=== PATIENT | female | born 1945 | race Caucasian/White ===

== ENCOUNTER → 2018-04-05 08:14 | Outpatient (CLI) | payer OTHER, SELFPAY ==
[2018-04-05 09:17] LABS: Hemoglobin A1C% w Est Avg Glu 7.2 % (4.0-6.0)
[2018-04-05 09:23] LABS: Hematocrit 37.3 % (36-46); Hemoglobin 12.9 g/dL (12.0-16.0); Mean Corpuscular HGB Conc 34.6 % (30-36); Mean Corpuscular Hemoglobin 30.6 PG (26-34); Mean Corpuscular Volume 88.5 fL (80-100); Platelet Count 251 X10^3/uL (150-400); Red Blood Cell Count 4.22 X10^6/uL (4.0-5.2); Red Cell Distribution Width 12.5 % (11.6-14.8); White Blood Cell Count 6.4 X10^3/uL (4.5-11.0)
[2018-04-05 09:28] LABS: Alanine Aminotransferase 31 IU/L (9-52); Albumin 4.5 g/dL (3.5-5.0); Albumin Globulin Ratio 1.4 (1.0-2.8); Alkaline Phosphatase 50 U/L (38-126); Aspartate Aminotransferase 23 IU/L (14-36); Bilirubin Total 0.6 mg/dL (0.2-1.3); Blood Urea Nitrogen 20 mg/dL (7-17); Calcium 10.4 mg/dL (8.4-10.2); Carbon Dioxide 30 mmol/L (22-32); Chloride 101 mmol/L (98-107); Cholesterol 166 mg/dL (140-199); Estimated Glomerular Filt Rate > 60.0 mL/min (>60); Globulin 3.2 g/dL (1.7-4.1); Glucose 148 mg/dL (80-110); HDL Cholesterol 45 mg/dL (40-60); HEMOLYSIS < 15 (0-50); LDL Cholesterol Calculated 78 mg/dL (<100); Potassium 4.5 mmol/L (3.4-5.1); Sodium 143 mmol/L (137-145); Total Protein 7.7 g/dL (6.3-8.2); Triglycerides 213 mg/dL (35-150)
[2018-04-05 09:44] LABS: Free T4, Direct Thyroxine 1.48 ng/dL (0.78-2.19)
[2018-04-05 09:58] LABS: Thyroid Stimulating Hormone 1.86 uIU/mL (0.47-4.68)
== END ==
PROVIDERS: Family Medicine; Visit Provider Family Medicine
DX: E03.9 Hypothyroidism, unspecified (principal); I10 Essential (primary) hypertension; E78.2 Mixed hyperlipidemia; E11.9 Type 2 diabetes mellitus without complications
CPT/HCPCS: 36415; 80053; 80061; 83036; 84439; 84443; 85027

== ENCOUNTER → 2018-07-21 09:34 | Outpatient (CLI) | payer OTHER, SELFPAY ==
[2018-07-21 10:32] LABS: Hemoglobin A1C% w Est Avg Glu 7.8 % (4.0-6.0)
== END ==
PROVIDERS: Visit Provider Family Medicine
DX: E11.9 Type 2 diabetes mellitus without complications (principal)
CPT/HCPCS: 36415; 83036

== ENCOUNTER → 2018-11-19 10:54 | Outpatient (CLI) | payer OTHER, SELFPAY ==
[2018-11-19 12:05] LABS: Hemoglobin A1C% w Est Avg Glu 7.5 % (4.0-6.0)
== END ==
PROVIDERS: Visit Provider Family Medicine
DX: E11.65 Type 2 diabetes mellitus with hyperglycemia (principal)
CPT/HCPCS: 36415; 83036

== ENCOUNTER → 2019-03-24 09:53 | Outpatient (CLI) | payer OTHER, SELFPAY ==
--- NOTE | 2019-03-24 10:45 | DI.RAD.S_ITS ---
PROCEDURE: XR KNEE RT 3V INDICATIONS: knee pain TECHNIQUE: 3 views of the knee were acquired. COMPARISON: [facility], , XR KNEE 2V RIGHT, 09/02/2002, 12:17. FINDINGS: Bones: No fractures or dislocations. No suspicious bony lesions. There is tricompartmental knee joint degeneration, most pronounced at the patellofemoral joint. Soft tissues: Small joint effusion. No suspicious soft tissue calcifications. IMPRESSION: Tricompartmental degenerative joint disease and small knee joint effusion. Dictated by: Cami Higuera M.D. on 03/24/2019 at 12:20 Approved by: Cami Higuera M.D. on 03/24/2019 at 12:21
[2019-03-24 11:54] LABS: Hemoglobin A1C% w Est Avg Glu 7.6 % (4.0-6.0)
== END ==
PROVIDERS: PCP Family Medicine; Visit Provider Family Medicine
DX: E11.319 Type 2 diabetes mellitus with unspecified diabetic retinopathy without macular edema (principal); E11.9 Type 2 diabetes mellitus without complications; E78.2 Mixed hyperlipidemia; M25.50 Pain in unspecified joint
CPT/HCPCS: 36415; 73562; 83036

== ENCOUNTER → 2019-04-20 11:27 | Outpatient (CLI) | payer OTHER, SELFPAY ==
--- NOTE | 2019-04-20 11:28 | DI.MG.S_ITS ---
BILATERAL DIGITAL SCREENING MAMMOGRAM 3D/2D WITH CAD: 04/20/2019 CLINICAL: Routine screening. Comparison is made to exams dated: 07/03/2011 mammogram, 09/05/2009 mammogram, and 11/26/2016 mammogram - [facility]. There are scattered fibroglandular elements in both breasts. Current study was also evaluated with a Computer Aided Detection (CAD) system. There are benign calcifications in both breasts. No significant masses, calcifications, or other findings are seen in either breast. There has been no significant interval change. IMPRESSION: There is no mammographic evidence of malignancy. A 1 year screening mammogram is recommended. This exam was interpreted at Station ID: [id number]. NOTE: For mammograms, a report in lay terms will be sent to the patient. Approximately 15% of breast malignancies will not be visualized mammographically. In the management of a palpable breast mass, a negative mammogram must not discourage biopsy of a clinically suspicious lesion. Electronically Signed By: Jin platt/ajith:04/20/2019 12:15:34 letter sent: Normal Exam ACR BI-RADS Category 2: Benign Finding(s) 3342F
== END ==
PROVIDERS: PCP Family Medicine; Visit Provider Family Medicine
DX: Z12.31 Encounter for screening mammogram for malignant neoplasm of breast (principal)
CPT/HCPCS: 77063; 77067

== ENCOUNTER → 2019-06-12 14:06 | Outpatient (CLI) | payer OTHER, SELFPAY | PROVIDERS: PCP Family Medicine; Visit Provider Nurse Practitioner Family | DX: L29.9 Pruritus, unspecified (principal) | CPT/HCPCS: 87210 ==

== ENCOUNTER → 2019-08-04 13:46 | Outpatient (CLI) | payer OTHER, SELFPAY ==
[2019-08-04 14:52] LABS: Add Manual Diff / Slide Review NO; Basophils Absolute Auto 0 /uL (0-100); Basophils Percent Auto 0.4 % (0-2); Eosinophils Absolute Auto 200 /uL (0-450); Eosinophils Percent Auto 2.4 % (2-4); Hematocrit 36.5 % (36-46); Hemoglobin 12.4 g/dL (12.0-16.0); Lymphocytes Absolute Auto 2000 /uL (1100-4500); Mean Corpuscular Hemoglobin 30.5 PG (26-34); Mean Corpuscular Volume 89.7 fL (80-100); Monocytes Absolute Auto 800 /uL (0-900); Neutrophils Absolute Auto 4700 /uL (1500-7000); Neutrophils Percent Auto 61.2 % (50-75); Platelet Count 245 X10^3/uL (150-400); Red Blood Cell Count 4.07 X10^6/uL (4.0-5.2); Red Cell Distribution Width 12.7 % (11.6-14.8); White Blood Cell Count 7.7 X10^3/uL (4.5-11.0)
[2019-08-04 15:12] LABS: Alanine Aminotransferase 30 IU/L (9-52); Albumin 4.4 g/dL (3.5-5.0); Albumin Globulin Ratio 1.7 (1.0-2.8); Alkaline Phosphatase 52 U/L (38-126); Aspartate Aminotransferase 27 IU/L (14-36); Bilirubin Total 0.4 mg/dL (0.2-1.3); Blood Urea Nitrogen 18 mg/dL (7-17); Calcium 9.8 mg/dL (8.4-10.2); Carbon Dioxide 25 mmol/L (22-32); Chloride 102 mmol/L (98-107); Estimated Glomerular Filt Rate > 60.0 mL/min (>60); Globulin 2.6 g/dL (1.7-4.1); Glucose 179 mg/dL (80-110); HEMOLYSIS < 15 (0-50); Potassium 4.6 mmol/L (3.4-5.1); Sodium 139 mmol/L (137-145)
[2019-08-04 15:14] LABS: Hemoglobin A1C% w Est Avg Glu 8.4 % (4.0-6.0)
[2019-08-04 15:42] LABS: TSH w/ Reflex to FT4 1.24 uIU/mL (0.47-4.68)
== END ==
PROVIDERS: PCP Family Medicine; Visit Provider Family Medicine
DX: E11.65 Type 2 diabetes mellitus with hyperglycemia (principal); E03.9 Hypothyroidism, unspecified
CPT/HCPCS: 36415; 80053; 83036; 84443; 85025

== ENCOUNTER → 2019-11-11 15:18 | Outpatient (CLI) | payer MEDICARE, SELFPAY ==
[2019-11-11 17:02] LABS: Hemoglobin A1C% w Est Avg Glu 8.7 % (4.0-6.0)
== END ==
PROVIDERS: PCP Family Medicine; Visit Provider Family Medicine
DX: E11.65 Type 2 diabetes mellitus with hyperglycemia (principal)
CPT/HCPCS: 36415; 83036

== ENCOUNTER → 2019-11-25 10:55 | Outpatient (CLI) | payer MEDICARE, SELFPAY ==
--- NOTE | 2019-11-25 14:35 | DIET.PN ---
Diabetes Intake: Initial Assessment ASSESS:?? Mrs. Shea is a 74 yof referred for long standing hx (20 yrs) of type 2 diabetes. She is partially retired, but works at home 2 days per week. She is frustrated with difficulty in managing her BG and weight. She has done weight watchers for several years, but admits to over snacking in the evening. States, if she has snacks/sweets in the house she will eat them. She has not been very active lately, but does enjoy walking the local trails. She reports some tingling and poor circulation in her lower extremities as well as wrestles leg syndrome. ? She has had a recent increase in diabetes medication (glipizide). She was prescribed 10 mg several months ago, but was only taking 2.5 mg mistakenly. LABS: Per pt report:? A1c: 8.7 ? MEDS:?? metformin 850 mg BID; glipizide XR BID ? Weight: 197lb Height: 70 in BMI: 28.26 (overweight) ? Exercise:? occasional walking NUTRITION DX 1. Altered Nutrition related labs related to impaired glucose metabolism, lack of previous exposure to accurate nutrition information as evidenced by pt report, dx of diabetes, previous diet high in refined carbohydrates.? Intervention: 1. Completed intake assessment. Discussed barriers to care. 2. Discussed pathophysiology of diabetes. Reviewed A1c and its correlation to blood glucose numbers. Discussed recommended BG ranges. 3. Discussed importance of self-monitoring, how often, and when to check. Provided demonstration on use of glucometer. 4. Reviewed hyper/hypoglycemia and treatment. 5. Reviewed safe disposal of equipment (strip/lancets/insulin needles). 6. Created SMART goals for pt self-care and success. 7. Discussed program curriculum outline and class needs based on individual goals. SMART Goals: 1. Pt would like to lose 20 lbs in the next 6 months through better dietary habits (portion control, carb counting, mindful snacking) and increasing daily physical activity. Monitor/Evaluate: Anticipate excellent compliance. Pt will attend full DSME program. Basic Nutrition class scheduled for Dec 01.
== END ==
PROVIDERS: PCP Family Medicine; Referring Provider Family Medicine; Visit Provider Family Medicine
DX: E11.9 Type 2 diabetes mellitus without complications (principal); Z79.84 Long term (current) use of oral hypoglycemic drugs; E66.3 Overweight; Z71.3 Dietary counseling and surveillance; Z68.28 Body mass index [BMI] 28.0-28.9, adult
CPT/HCPCS: G0108

== ENCOUNTER → 2019-12-01 14:24 | Outpatient (CLI) | payer MEDICARE, SELFPAY ==
--- NOTE | 2019-12-01 16:18 | DIET.PN ---
Diabetes: Healthy Eating 2 Intervention: Fats effects on glucose, weight, heart disease, cholesterol Sat Vs Unsat Protein- animal and plant based options Low, med, high fat meats Sugar substitutes Sodium Health claims Grocery shopping guidelines Eating away from home Alcohol Sick day guidelines
== END ==
PROVIDERS: PCP Family Medicine; Referring Provider Family Medicine; Visit Provider Family Medicine
DX: E11.9 Type 2 diabetes mellitus without complications (principal); Z71.3 Dietary counseling and surveillance
CPT/HCPCS: G0109

== ENCOUNTER → 2019-12-14 15:03 | Outpatient (CLI) | payer MEDICARE, SELFPAY ==
[2019-12-14 20:01] LABS: Creatinine Urine Random 181.4 mg/dL
[2019-12-14 20:06] LABS: Microalbumi Creatinin Ratio Ur 20.3 ug/mg CR (<30); Microalbumin Urine Random 3.7 mg/dL (0-1.6)
== END ==
PROVIDERS: PCP Family Medicine; Visit Provider Family Medicine
DX: E11.65 Type 2 diabetes mellitus with hyperglycemia (principal)
CPT/HCPCS: 82043; 82570

== ENCOUNTER → 2019-12-26 10:28 | Outpatient (CLI) | payer MEDICARE, SELFPAY ==
[2019-12-26 10:58] LABS: Appearance Urine UA CLOUDY; Bilirubin Urine UA NEGATIVE (NEGATIVE); Color Urine UA YELLOW; Glucose Urine UA TRACE g/dL (Negative); Ketones Urine UA TRACE (NEGATIVE); Leukocyte Esterase Urine UA 2+ (NEGATIVE); Nitrite Urine UA POSITIVE (Negative); Occult Blood Urine UA 2+ (Negative); Protein Urine UA 1+ (Negative); Urobilinogen Urine UA 0.2 E.U./dL (0.2)
[2019-12-26 11:05] LABS: Bacteria Urine Many (>30); Culture Indicated Urine Specimen Cultured; RBC Urine 5-10/HPF (0-5/HPF); Squamous Epithelial Cell Urine None Seen (0-5/HPF); WBC Urine >100/HPF (0-5/HPF)
== END ==
PROVIDERS: PCP Family Medicine; Referring Provider Family Medicine; Visit Provider Family Medicine
DX: R30.0 Dysuria (principal)
CPT/HCPCS: 81001; 87077; 87086; 87186

== ENCOUNTER → 2020-01-05 16:38 | Outpatient (CLI) | payer MEDICARE, SELFPAY ==
[2020-01-05 17:00] LABS: Appearance Urine UA CLOUDY; Bilirubin Urine UA NEGATIVE (NEGATIVE); Color Urine UA YELLOW; Glucose Urine UA 1+ g/dL (Negative); Ketones Urine UA 1+ (NEGATIVE); Leukocyte Esterase Urine UA 2+ (NEGATIVE); Nitrite Urine UA POSITIVE (Negative); Occult Blood Urine UA 2+ (Negative); Protein Urine UA 1+ (Negative); Specific Gravity Urine UA 1.025 (1.000-1.035); Urobilinogen Urine UA 0.2 E.U./dL (0.2)
[2020-01-05 17:08] LABS: Bacteria Urine Moderate (10-30); Culture Indicated Urine Specimen Cultured; Mucus Urine 2+ (Negative); RBC Urine 1-5/HPF (0-5/HPF); Squamous Epithelial Cell Urine 0-1 /HPF (0-5/HPF); WBC Urine >100/HPF (0-5/HPF)
== END ==
PROVIDERS: PCP Family Medicine; Referring Provider Family Medicine; Visit Provider Family Medicine
DX: R30.0 Dysuria (principal)
CPT/HCPCS: 81001; 87077; 87086; 87186

== ENCOUNTER → 2020-02-22 14:25 | Outpatient (CLI) | payer MEDICARE, SELFPAY ==
[2020-02-22 16:25] LABS: Bilirubin Urine UA NEGATIVE (NEGATIVE); Color Urine UA YELLOW; Glucose Urine UA TRACE g/dL (Negative); Ketones Urine UA NEGATIVE (NEGATIVE); Leukocyte Esterase Urine UA 2+ (NEGATIVE); Nitrite Urine UA POSITIVE (Negative); Occult Blood Urine UA 1+ (Negative); Protein Urine UA NEGATIVE (Negative); Specific Gravity Urine UA 1.025 (1.000-1.035); Urobilinogen Urine UA 0.2 E.U./dL (0.2)
[2020-02-22 16:38] LABS: Appearance Urine UA Slightly Cloudy; RBC Urine 1-5/HPF (0-5/HPF); WBC Urine >100/HPF (0-5/HPF)
[2020-02-22 16:39] LABS: Bacteria Urine Many (>30)
[2020-02-22 16:41] LABS: Culture Indicated Urine Specimen Cultured
== END ==
PROVIDERS: PCP Family Medicine; Referring Provider Family Medicine; Visit Provider Family Medicine
DX: R30.0 Dysuria (principal)
CPT/HCPCS: 81001; 87077; 87086; 87186

== ENCOUNTER → 2020-03-02 11:48 | Outpatient (CLI) | payer MEDICARE, SELFPAY ==
[2020-03-02 12:11] LABS: Bacteria Urine None Seen; RBC Urine None Seen (0-5/HPF)
[2020-03-02 13:18] LABS: Appearance Urine UA CLEAR; Bilirubin Urine UA NEGATIVE (NEGATIVE); Color Urine UA YELLOW; Glucose Urine UA TRACE g/dL (Negative); Ketones Urine UA NEGATIVE (NEGATIVE); Leukocyte Esterase Urine UA NEGATIVE (NEGATIVE); Nitrite Urine UA NEGATIVE (Negative); Occult Blood Urine UA NEGATIVE (Negative); Protein Urine UA NEGATIVE (Negative); Urobilinogen Urine UA 0.2 E.U./dL (0.2)
[2020-03-02 13:38] LABS: Culture Indicated Urine Cult Not Indicated; Mucus Urine 1+ (Negative); Squamous Epithelial Cell Urine 1-5 /HPF (0-5/HPF); WBC Urine 1-5/HPF (0-5/HPF)
== END ==
PROVIDERS: PCP Family Medicine; Referring Provider Family Medicine; Visit Provider Family Medicine
DX: N39.0 Urinary tract infection, site not specified (principal)
CPT/HCPCS: 81001

== ENCOUNTER → 2020-03-21 09:55 | Outpatient (CLI) | payer MEDICARE, SELFPAY ==
[2020-03-21 11:10] LABS: BUN Creatinine Ratio 17.1 (6-22); Blood Urea Nitrogen 13 mg/dL (7-17); Calcium 9.8 mg/dL (8.4-10.2); Carbon Dioxide 25 mmol/L (22-32); Chloride 107 mmol/L (98-107); Cholesterol 172 mg/dL (140-199); Estimated Glomerular Filt Rate > 60.0 mL/min (>60); Glucose 185 mg/dL (80-110); HDL Cholesterol 40 mg/dL (40-60); HEMOLYSIS < 15 (0-50); LDL Cholesterol Calculated 95 mg/dL (<100); Potassium 4.8 mmol/L (3.4-5.1); Sodium 139 mmol/L (137-145); Triglycerides 184 mg/dL (35-150)
[2020-03-21 11:17] LABS: Hemoglobin A1C% w Est Avg Glu 8.7 % (4.0-6.0)
== END ==
PROVIDERS: PCP Family Medicine; Referring Provider Family Medicine; Visit Provider Family Medicine
DX: E11.9 Type 2 diabetes mellitus without complications (principal); E78.2 Mixed hyperlipidemia; I10 Essential (primary) hypertension
CPT/HCPCS: 36415; 80048; 80061; 83036

== ENCOUNTER → 2020-07-26 10:13 | Outpatient (CLI) | payer MEDICARE, SELFPAY ==
[2020-07-26 11:28] LABS: Appearance Urine UA CLOUDY; Bilirubin Urine UA NEGATIVE (NEGATIVE); Color Urine UA YELLOW; Glucose Urine UA NEGATIVE (Negative); Ketones Urine UA NEGATIVE (NEGATIVE); Leukocyte Esterase Urine UA 2+ (NEGATIVE); Nitrite Urine UA POSITIVE (Negative); Occult Blood Urine UA TRACE-LYSED (Negative); Protein Urine UA TRACE (Negative); Specific Gravity Urine UA 1.025 (1.000-1.035); Urobilinogen Urine UA 0.2 E.U./dL (0.2)
[2020-07-26 11:37] LABS: Bacteria Urine Many (>30); Culture Indicated Urine Specimen Cultured; RBC Urine 1-5/HPF (0-5/HPF); Squamous Epithelial Cell Urine 1-5 /HPF (0-5/HPF); WBC Urine >100/HPF (0-5/HPF)
[2020-07-26 11:38] LABS: Add Manual Diff / Slide Review NO; Basophils Absolute Auto 0 /uL (0-100); Basophils Percent Auto 0.3 % (0-2); Eosinophils Absolute Auto 100 /uL (0-450); Eosinophils Percent Auto 1.7 % (2-4); Hematocrit 38.2 % (36-46); Lymphocytes Absolute Auto 2100 /uL (1100-4500); Lymphocytes Percent Auto 24.1 % (25-40); Mean Corpuscular HGB Conc 33.9 % (30-36); Mean Corpuscular Hemoglobin 30.2 PG (26-34); Mean Corpuscular Volume 89.1 fL (80-100); Monocytes Absolute Auto 900 /uL (0-900); Neutrophils Absolute Auto 5400 /uL (1500-7000); Neutrophils Percent Auto 63.9 % (50-75); Platelet Count 282 X10^3/uL (150-400); Red Blood Cell Count 4.29 X10^6/uL (4.0-5.2); Red Cell Distribution Width 12.7 % (11.6-14.8); White Blood Cell Count 8.5 X10^3/uL (4.5-11.0)
[2020-07-26 11:50] LABS: Alanine Aminotransferase 44 IU/L (<35); Albumin 4.5 g/dL (3.5-5.0); Albumin Globulin Ratio 1.5 (1.0-2.8); Alkaline Phosphatase 56 U/L (38-126); Aspartate Aminotransferase 38 IU/L (14-36); BUN Creatinine Ratio 25.9 (6-22); Bilirubin Total 0.6 mg/dL (0.2-1.3); Blood Urea Nitrogen 22 mg/dL (7-17); Carbon Dioxide 29 mmol/L (22-32); Chloride 103 mmol/L (98-107); Cholesterol 162 mg/dL (140-199); Estimated Glomerular Filt Rate > 60.0 mL/min (>60); Globulin 3.1 g/dL (1.7-4.1); Glucose 173 mg/dL (80-110); HDL Cholesterol 39 mg/dL (40-60); HEMOLYSIS < 15 (0-50); LDL Cholesterol Calculated 86 mg/dL (<100); Potassium 4.9 mmol/L (3.4-5.1); Sodium 139 mmol/L (137-145); Total Protein 7.6 g/dL (6.3-8.2); Triglycerides 184 mg/dL (35-150)
[2020-07-26 11:52] LABS: Hemoglobin A1C% w Est Avg Glu 8.2 % (4.0-6.0)
[2020-07-26 12:32] LABS: TSH w/ Reflex to FT4 1.51 uIU/mL (0.47-4.68)
== END ==
PROVIDERS: PCP Family Medicine; Referring Provider Family Medicine; Visit Provider Family Medicine
DX: E03.9 Hypothyroidism, unspecified (principal); E11.65 Type 2 diabetes mellitus with hyperglycemia; E78.2 Mixed hyperlipidemia; I10 Essential (primary) hypertension; R30.0 Dysuria
CPT/HCPCS: 36415; 80053; 80061; 81003; 81015; 83036; 84443; 85025; 87077; 87086; 87186

== ENCOUNTER → 2020-12-14 09:56 | Outpatient (CLI) | payer MEDICARE, SELFPAY ==
[2020-12-14 11:26] LABS: Hemoglobin A1C% w Est Avg Glu 8.9 % (4.0-6.0)
[2020-12-14 11:59] LABS: Alanine Aminotransferase 40 IU/L (<35); Albumin 4.6 g/dL (3.5-5.0); Albumin Globulin Ratio 1.8 (1.0-2.8); Alkaline Phosphatase 58 U/L (38-126); Aspartate Aminotransferase 30 IU/L (14-36); BUN Creatinine Ratio 22.2 (6-22); Bilirubin Total 0.4 mg/dL (0.2-1.3); Blood Urea Nitrogen 18 mg/dL (7-17); Calcium 9.9 mg/dL (8.4-10.2); Carbon Dioxide 27 mmol/L (22-32); Chloride 102 mmol/L (98-107); Estimated Glomerular Filt Rate > 60.0 mL/min (>60); Globulin 2.5 g/dL (1.7-4.1); Glucose 159 mg/dL (80-110); HEMOLYSIS < 15 (0-50); Potassium 4.6 mmol/L (3.4-5.1); Sodium 138 mmol/L (137-145); Total Protein 7.1 g/dL (6.3-8.2)
== END ==
PROVIDERS: PCP Family Medicine; Referring Provider Family Medicine; Visit Provider Family Medicine
DX: E11.65 Type 2 diabetes mellitus with hyperglycemia (principal)
CPT/HCPCS: 36415; 80053; 83036

== ENCOUNTER → 2020-12-19 12:08 | Outpatient (CLI) | payer MEDICARE, SELFPAY ==
--- NOTE | 2020-12-19 | DI.MG.S_ITS ---
BILATERAL DIGITAL SCREENING MAMMOGRAM 3D/2D WITH CAD: 12/19/2020 CLINICAL: Routine screening. Comparison is made to exams dated: 04/20/2019 mammogram, 11/26/2016 mammogram, and 07/03/2011 mammogram - [facility]. There are scattered fibroglandular elements in both breasts. Current study was also evaluated with a Computer Aided Detection (CAD) system. There are benign calcifications in both breasts. No significant masses, calcifications, or other findings are seen in either breast. There has been no significant interval change. IMPRESSION: BENIGN There is no mammographic evidence of malignancy. A 1 year screening mammogram is recommended. This exam was interpreted at Station ID: [id number]. NOTE: For mammograms, a report in lay terms will be sent to the patient. Approximately 15% of breast malignancies will not be visualized mammographically. In the management of a palpable breast mass, a negative mammogram must not discourage biopsy of a clinically suspicious lesion. Electronically Signed By: Red guy/ajith:12/19/2020 14:04:51 letter sent: Normal Exam ACR BI-RADS Category 2: Benign Finding(s) 3342F
== END ==
PROVIDERS: PCP Family Medicine; Referring Provider Family Medicine; Visit Provider Family Medicine
DX: Z12.31 Encounter for screening mammogram for malignant neoplasm of breast (principal)
CPT/HCPCS: 77063; 77067

== ENCOUNTER → 2021-03-15 12:17 | Outpatient (CLI) | payer MEDICARE, SELFPAY ==
[2021-03-15 13:48] LABS: Hemoglobin A1C% w Est Avg Glu 8.3 % (4.0-6.0)
== END ==
PROVIDERS: PCP Family Medicine; Referring Provider Family Medicine; Visit Provider Family Medicine
DX: E11.65 Type 2 diabetes mellitus with hyperglycemia (principal)
CPT/HCPCS: 36415; 83036

== ENCOUNTER → 2021-06-16 12:29 | Outpatient (CLI) | payer MEDICARE, SELFPAY ==
[2021-06-16 14:16] LABS: Hemoglobin A1C% w Est Avg Glu 7.2 % (4.0-6.0)
[2021-06-16 14:25] LABS: Alanine Aminotransferase 33 IU/L (<35); Albumin 4.8 g/dL (3.5-5.0); Albumin Globulin Ratio 1.7 (1.0-2.8); Alkaline Phosphatase 51 U/L (38-126); Aspartate Aminotransferase 30 IU/L (14-36); BUN Creatinine Ratio 27.1 (6-22); Bilirubin Total 0.5 mg/dL (0.2-1.3); Blood Urea Nitrogen 23 mg/dL (7-17); Calcium 9.7 mg/dL (8.4-10.2); Carbon Dioxide 27 mmol/L (22-32); Chloride 102 mmol/L (98-107); Estimated Glomerular Filt Rate > 60.0 mL/min (>60); Globulin 2.9 g/dL (1.7-4.1); Glucose 150 mg/dL (80-110); HEMOLYSIS < 15 (0-50); Potassium 4.3 mmol/L (3.4-5.1); Sodium 137 mmol/L (137-145); Total Protein 7.7 g/dL (6.3-8.2)
== END ==
PROVIDERS: PCP Family Medicine; Referring Provider Family Medicine; Visit Provider Family Medicine
DX: E11.65 Type 2 diabetes mellitus with hyperglycemia (principal)
CPT/HCPCS: 36415; 80053; 83036

== ENCOUNTER → 2021-12-23 10:42 | Outpatient (CLI) | payer MEDICARE, SELFPAY ==
[2021-12-23 12:36] LABS: Hemoglobin A1C% w Est Avg Glu 7.7 % (4.0-6.0)
[2021-12-23 12:50] LABS: Alanine Aminotransferase 29 IU/L (<35); Albumin 4.7 g/dL (3.5-5.0); Albumin Globulin Ratio 1.6 (1.0-2.8); Alkaline Phosphatase 57 U/L (38-126); Aspartate Aminotransferase 26 IU/L (14-36); BUN Creatinine Ratio 22.6 (6-22); Bilirubin Total 0.6 mg/dL (0.2-1.3); Blood Urea Nitrogen 19 mg/dL (7-17); Calcium 9.9 mg/dL (8.4-10.2); Carbon Dioxide 28 mmol/L (22-32); Chloride 102 mmol/L (98-107); Estimated Glomerular Filt Rate > 60.0 mL/min (>60); Glucose 141 mg/dL (80-110); HEMOLYSIS < 15 (0-50); Potassium 5.1 mmol/L (3.4-5.1); Sodium 139 mmol/L (137-145); Total Protein 7.7 g/dL (6.3-8.2)
[2021-12-23 13:22] LABS: TSH w/ Reflex to FT4 1.11 uIU/mL (0.47-4.68)
[2021-12-23 13:42] LABS: Vitamin B12 443 pg/mL (239-931)
== END ==
PROVIDERS: PCP Family Medicine; Referring Provider Family Medicine; Visit Provider Family Medicine
DX: E11.9 Type 2 diabetes mellitus without complications (principal); E03.9 Hypothyroidism, unspecified
CPT/HCPCS: 36415; 80053; 82607; 83036; 84443

== ENCOUNTER → 2021-12-25 09:55 | Outpatient (CLI) | payer MEDICARE, SELFPAY ==
[2021-12-25 19:35] LABS: Microalbumin Urine Random 1.4 mg/dL (0-1.6)
[2021-12-25 19:44] LABS: Creatinine Urine Random 73.4 mg/dL
== END ==
PROVIDERS: PCP Family Medicine; Referring Provider Family Medicine; Visit Provider Family Medicine
DX: E11.9 Type 2 diabetes mellitus without complications (principal)
CPT/HCPCS: 82043; 82570

== ENCOUNTER → 2022-03-20 14:24 | Outpatient (CLI) | payer MEDICARE, SELFPAY ==
--- NOTE | 2022-03-20 14:25 | DI.MG.S_ITS ---
BILATERAL DIGITAL SCREENING MAMMOGRAM 3D/2D WITH CAD: 03/20/2022 CLINICAL: Routine screening. Comparison is made to exams dated: 12/19/2020 mammogram, 04/20/2019 mammogram, and 11/26/2016 mammogram - [facility]. There are scattered fibroglandular elements in both breasts. Current study was also evaluated with a Computer Aided Detection (CAD) system. There are benign calcifications in both breasts. No significant masses, calcifications, or other findings are seen in either breast. There has been no significant interval change. IMPRESSION: BENIGN There is no mammographic evidence of malignancy. A 1 year screening mammogram is recommended. This exam was interpreted at Station ID: [id number]. NOTE: For mammograms, a report in lay terms will be sent to the patient. Approximately 15% of breast malignancies will not be visualized mammographically. In the management of a palpable breast mass, a negative mammogram must not discourage biopsy of a clinically suspicious lesion. Electronically Signed By: Terry gonzalez/ajith:03/20/2022 15:03:03 letter sent: Normal Exam ACR BI-RADS Category 2: Benign Finding(s) 3342F
== END ==
PROVIDERS: PCP Family Medicine; Referring Provider Family Medicine; Visit Provider Family Medicine
DX: Z12.31 Encounter for screening mammogram for malignant neoplasm of breast (principal)
CPT/HCPCS: 77063; 77067

== ENCOUNTER → 2022-06-06 12:09 | Outpatient (CLI) | payer MEDICARE, SELFPAY ==
[2022-06-06 14:06] LABS: Hemoglobin A1C% w Est Avg Glu 7.4 % (4.0-6.0)
== END ==
PROVIDERS: PCP Family Medicine; Referring Provider Family Medicine; Visit Provider Family Medicine
DX: E11.9 Type 2 diabetes mellitus without complications (principal)
CPT/HCPCS: 36415; 83036

== ENCOUNTER → 2022-12-12 13:27 | Outpatient (CLI) | payer MEDICARE, SELFPAY ==
[2022-12-12 14:23] LABS: Alanine Aminotransferase 30 IU/L (<35); Albumin 4.3 g/dL (3.5-5.0); Albumin Globulin Ratio 1.5 (1.0-2.8); Alkaline Phosphatase 61 U/L (38-126); Aspartate Aminotransferase 27 IU/L (14-36); BUN Creatinine Ratio 23.8 (6-22); Bilirubin Total 0.4 mg/dL (0.2-1.3); Blood Urea Nitrogen 19 mg/dL (7-17); Calcium 9.3 mg/dL (8.4-10.2); Chloride 101 mmol/L (98-107); Estimated Glomerular Filt Rate > 60 mL/min (>60); Globulin 2.8 g/dL (1.7-4.1); Glucose 218 mg/dL (80-110); HEMOLYSIS < 15 (0-50); Potassium 4.6 mmol/L (3.4-5.1); Sodium 138 mmol/L (137-145); Total Protein 7.1 g/dL (6.3-8.2)
[2022-12-12 14:24] LABS: Carbon Dioxide 26 mmol/L (22-32); Hemoglobin A1C% w Est Avg Glu 8.1 % (4.0-6.0)
[2022-12-12 15:27] LABS: TSH w/ Reflex to FT4 0.36 uIU/mL (0.47-4.68)
[2022-12-12 17:19] LABS: Creatinine Urine Random 52.6 mg/dL
[2022-12-12 17:25] LABS: Microalbumin Urine Random < 0.6 mg/dL (0-1.6)
[2022-12-13 04:41] LABS: Free T4, Direct Thyroxine 2.03 ng/dL (0.78-2.19)
== END ==
PROVIDERS: PCP Family Medicine; Referring Provider Family Medicine; Visit Provider Family Medicine
DX: E11.319 Type 2 diabetes mellitus with unspecified diabetic retinopathy without macular edema (principal); E03.9 Hypothyroidism, unspecified
CPT/HCPCS: 36415; 80053; 82043; 82570; 83036; 84439; 84443

== ENCOUNTER → 2023-02-26 13:36 | Outpatient (CLI) | payer MEDICARE, SELFPAY ==
[2023-02-27 06:01] LABS: Labcorp Hemoglobin (Hb) A1c 8.3 % (4.8-5.6)
== END ==
PROVIDERS: PCP Family Medicine; Referring Provider Family Medicine; Visit Provider Family Medicine
DX: E11.9 Type 2 diabetes mellitus without complications (principal)
CPT/HCPCS: 83036

== ENCOUNTER → 2023-03-25 11:00 | Outpatient (CLI) | payer MEDICARE, SELFPAY ==
--- NOTE | 2023-03-25 11:01 | DI.MG.S_ITS ---
BILATERAL DIGITAL SCREENING MAMMOGRAM 3D/2D WITH CAD: 03/25/2023 CLINICAL: Routine screening. Comparison is made to exams dated: 03/20/2022 mammogram, 12/19/2020 mammogram, and 04/20/2019 mammogram - [facility]. Both breasts are heterogeneously dense, which may obscure small masses (category c / 51-75% glandular tissue). Current study was also evaluated with a Computer Aided Detection (CAD) system. There are benign calcifications in both breasts. No significant masses, calcifications, or other findings are seen in either breast. There has been no significant interval change. IMPRESSION: BENIGN There is no mammographic evidence of malignancy. A 1 year screening mammogram is recommended. Based on the Tyrer Cuzick model (a risk assessment model) the patient's lifetime risk is 4.0% and her 10 year risk is 0.0%. According to the ACR, ACS, and NCCN guidelines, an annual breast MRI exam along with mammogram is recommended if the patient's lifetime risk is 20% or greater. This exam was interpreted at Station ID: [id number]. NOTE: For mammograms, a report in lay terms will be sent to the patient. Approximately 15% of breast malignancies will not be visualized mammographically. In the management of a palpable breast mass, a negative mammogram must not discourage biopsy of a clinically suspicious lesion. Electronically Signed By: Edson madrigal/ajith:03/25/2023 12:49:25 letter sent: Normal Exam ACR BI-RADS Category 2: Benign Finding(s) 3342F
== END ==
PROVIDERS: Family Provider Family Medicine; PCP Family Medicine; Referring Provider Family Medicine; Visit Provider Family Medicine
DX: Z12.31 Encounter for screening mammogram for malignant neoplasm of breast (principal)
CPT/HCPCS: 77063; 77067

== ENCOUNTER → 2023-03-29 10:07 | Outpatient (CLI) | payer MEDICARE, SELFPAY ==
--- NOTE | 2023-04-04 15:23 | DIAB.INIT ---
Initial Diabetes Education Assessment Name: Jane Shea Date: 03/29/23 Time: [id number] Dx: Type II Diabetes Provider: Zeke Tellez presents for initial Dm visit. Interested in CGM. Understands that personal CGM would be out of pocket expense. Endorses FH of DM with father and paternal grandmother. 20+ years PMH of DM Wants ideas for healthy low carb snacks. Physical Activity: walks occasionally 2x per week for 2-2.5 mi Self-Monitoring Blood Glucose: Checks FBG: recently 120-135mg/dl, however can be as high as 170 mg/dl. Feels low at 80 mg/dl. Diabetes Medications: Glipizide 10mg ER Metformin 850 mg BID Jardiance 25mg Pertinent Labs: hgA1c: 8.3% 02/2023 ; 8.1% 12/2022 Past Medical History: (Last Updated 03/13/23 @ 17:07 by PAT OrozcoC) Chicken pox Childhood Chronic back pain (~1969) Chronic neck pain Diabetes mellitus (~1998) Diabetic neuropathy Diabetic retinopathy Hyperlipidemia (~1995) Hypertension (~2005) Hyperthyroidism (~1989) With goiter Measles Childhood Mumps Childhood Overweight (BMI 25.0-29.9) Transient ischemic attack (~2016) Type 2 diabetes mellitus Intervention: This participant was very receptive. Provided appropriate educational handouts. Discussed the following topics: General recommended servings for carbohydrates at meals and snacks Brainstormed snack ideas CGM education, self placement, likely cost out of pocket if she decides to continue Physical activity plan Created SMART goals for patient self-care and success. Goals: Try CGM Walk 2x per week Follow-up: SWATHI ATWOOD follow-up prn due to this RD on leave until Aug. Provided resources for support prn. Niru Gonsales RDN, RAI Certified Diabetes Care and Exit Booth Agent P: [phone] Thank you for this referral
== END ==
PROVIDERS: Absent Provider Family Medicine; Family Provider Family Medicine; PCP Family Medicine; Referring Provider Family Medicine; Visit Provider Family Medicine
DX: E11.9 Type 2 diabetes mellitus without complications (principal); E66.3 Overweight; Z79.84 Long term (current) use of oral hypoglycemic drugs; Z71.3 Dietary counseling and surveillance
CPT/HCPCS: G0108

== ENCOUNTER → 2023-08-08 10:58 | Outpatient (CLI) | payer MEDICARE, SELFPAY ==
[2023-08-08 12:54] LABS: Alanine Aminotransferase 22 IU/L (<35); Albumin 4.3 g/dL (3.5-5.0); Albumin Globulin Ratio 1.6 (1.0-2.8); Alkaline Phosphatase 47 U/L (38-126); Aspartate Aminotransferase 23 IU/L (14-36); Bilirubin Total 0.5 mg/dL (0.2-1.3); Blood Urea Nitrogen 17 mg/dL (7-17); Calcium 9.9 mg/dL (8.4-10.2); Carbon Dioxide 28 mmol/L (22-32); Chloride 105 mmol/L (98-107); Cholesterol 159 mg/dL (140-199); Estimated Glomerular Filt Rate > 60 mL/min (>60); Globulin 2.7 g/dL (1.7-4.1); Glucose 132 mg/dL (80-110); HDL Cholesterol 44 mg/dL (40-60); HEMOLYSIS < 15 (0-50); LDL Cholesterol Calculated 79 mg/dL (<100); Potassium 4.8 mmol/L (3.4-5.1); Sodium 141 mmol/L (137-145); Triglycerides 181 mg/dL (35-150)
[2023-08-08 18:41] LABS: Creatinine Urine Random 100.6 mg/dL
[2023-08-08 18:46] LABS: Microalbumi Creatinin Ratio Ur 37.7 ug/mg CR (<30); Microalbumin Urine Random 3.8 mg/dL (0-1.6)
== END ==
PROVIDERS: Family Provider Family Medicine; Referring Provider Physician Assistant; Visit Provider Physician Assistant
DX: E11.319 Type 2 diabetes mellitus with unspecified diabetic retinopathy without macular edema (principal); E78.2 Mixed hyperlipidemia; I10 Essential (primary) hypertension
CPT/HCPCS: 80053; 80061; 82043; 82570

== ENCOUNTER → 2024-03-19 09:56 | Outpatient (CLI) | payer MEDICARE, SELFPAY ==
[2024-03-19 11:08] LABS: Alanine Aminotransferase 27 IU/L (<35); Albumin 4.4 g/dL (3.5-5.0); Albumin Globulin Ratio 1.6 (1.0-2.8); Alkaline Phosphatase 56 U/L (38-126); Aspartate Aminotransferase 25 IU/L (14-36); BUN Creatinine Ratio 29.6 (6-22); Bilirubin Total 0.6 mg/dL (0.2-1.3); Blood Urea Nitrogen 24 mg/dL (7-17); Calcium 9.6 mg/dL (8.4-10.2); Carbon Dioxide 28 mmol/L (22-32); Chloride 107 mmol/L (98-107); Estimated Glomerular Filt Rate > 60 mL/min (>60); Globulin 2.8 g/dL (1.7-4.1); Glucose 165 mg/dL (80-110); HEMOLYSIS < 15 (0-50); Potassium 4.8 mmol/L (3.4-5.1); Sodium 140 mmol/L (137-145); Total Protein 7.2 g/dL (6.3-8.2)
[2024-03-19 11:38] LABS: TSH w/ Reflex to FT4 0.31 uIU/mL (0.47-4.68)
[2024-03-19 13:24] LABS: Free T4, Direct Thyroxine 1.23 ng/dL (0.78-2.19)
[2024-03-19 15:48] LABS: Creatinine Urine Random 125.51 mg/dL
[2024-03-19 15:52] LABS: Microalbumin Urine Random 4.7 mg/dL (0-1.6)
== END ==
PROVIDERS: Family Provider Family Medicine; PCP Student in an Organized Health Care Education/Training Program; Referring Provider Student in an Organized Health Care Education/Training Program; Visit Provider Student in an Organized Health Care Education/Training Program
DX: E11.9 Type 2 diabetes mellitus without complications (principal); E03.9 Hypothyroidism, unspecified
CPT/HCPCS: 36415; 80053; 82043; 82570; 83036; 84439; 84443

== ENCOUNTER → 2024-04-09 11:59 | Outpatient (CLI) | payer MEDICARE, SELFPAY ==
--- NOTE | 2024-04-09 11:59 | DI.MG.S_ITS ---
BILATERAL DIGITAL DIAGNOSTIC MAMMOGRAM 3D/2D: 04/09/2024 CLINICAL: Right breast lesion. Comparison is made to exams dated: 03/25/2023 mammogram, 03/20/2022 mammogram, 12/19/2020 mammogram, and 04/20/2019 mammogram - [facility]. There are scattered areas of fibroglandular density in both breasts (category b / 25%-50% glandular tissue). There are benign calcifications in both breasts. No significant masses, calcifications, or other findings are seen in either breast. IMPRESSION: INCOMPLETE: NEEDS ADDITIONAL IMAGING EVALUATION No mammographic evidence of malignancy. A targeted ultrasound is recommended and will immediately follow. Based on the Tyrer Cuzick model (a risk assessment model) the patient's lifetime risk is 2.4% and her 10 year risk is 0.0%. According to the ACR, ACS, and NCCN guidelines, an annual breast MRI exam along with mammogram is recommended if the patient's lifetime risk is 20% or greater. This exam was interpreted at Station ID: [id number]. NOTE: For mammograms, a report in lay terms will be sent to the patient. Approximately 15% of breast malignancies will not be visualized mammographically. In the management of a palpable breast mass, a negative mammogram must not discourage biopsy of a clinically suspicious lesion. Electronically Signed By: Marty العراقي M.D. slc/:04/09/2024 12:53:22 ACR BI-RADS Category 0: Incomplete 3340F
--- NOTE | 2024-04-09 11:59 | DI.US.S_ITS ---
LIMITED ULTRASOUND OF RIGHT BREAST: 04/09/2024 CLINICAL: Follow up from addtional views. Comparison is made to exams dated: 04/09/2024 mammogram, 03/25/2023 mammogram, 03/20/2022 mammogram, and 12/19/2020 mammogram - [facility]. Real-time ultrasound of the right breast 6 o'clock region was performed. Banks scale images of the real-time examination were reviewed. No significant abnormalities were seen sonographically in the right breast. IMPRESSION: NEGATIVE There is no sonographic evidence of malignancy. No mass or cyst in the breast. Recommend clinical evaluation for the right breast skin lesion. Sanitation Technician reports scant erythema at the site of clinical concern. Patient report that the lesion flakes off. Exam findings were conveyed to the patient. Patient is advised to monitor for significant change. A 1 year screening mammogram is recommended. This exam was interpreted at Station ID: [id number]. Electronically Signed By: Marty العراقي M.D. slc/:04/09/2024 13:24:14 letter sent: Clinical Evaluation Ultrasound BI-RADS: 1 Negative
== END ==
PROVIDERS: Family Provider Family Medicine; PCP Student in an Organized Health Care Education/Training Program; Referring Provider Student in an Organized Health Care Education/Training Program; Visit Provider Student in an Organized Health Care Education/Training Program
DX: R92.2 Inconclusive mammogram (principal); R92.323 Mammographic fibroglandular density, bilateral breasts; N64.4 Mastodynia; L98.8 Other specified disorders of the skin and subcutaneous tissue
CPT/HCPCS: 76642; 77066; G0279

== ENCOUNTER → 2024-06-01 14:45 | Outpatient (CLI) | payer MEDICARE, SELFPAY ==
[2024-06-01 16:02] LABS: HEMOLYSIS < 15 (0-50); Iron 100 ug/dL (37-170)
[2024-06-01 16:12] LABS: Percent Iron Saturation 35 % (15-50); Total Iron Binding Capacity 288 ug/dL (265-497); Transferrin 234 mg/dL (206-381)
[2024-06-01 16:35] LABS: TSH w/ Reflex to FT4 0.06 uIU/mL (0.47-4.68)
[2024-06-01 16:38] LABS: Ferritin 65 ng/mL (11-264)
== END ==
PROVIDERS: Family Provider Family Medicine; PCP Student in an Organized Health Care Education/Training Program; Referring Provider Student in an Organized Health Care Education/Training Program; Visit Provider Student in an Organized Health Care Education/Training Program
DX: E11.40 Type 2 diabetes mellitus with diabetic neuropathy, unspecified (principal); E03.9 Hypothyroidism, unspecified; E11.65 Type 2 diabetes mellitus with hyperglycemia
CPT/HCPCS: 36415; 82728; 83540; 83550; 84439; 84443

== ENCOUNTER → 2024-07-15 14:15 | Outpatient (CLI) | payer MEDICARE, SELFPAY ==
--- NOTE | 2024-07-15 14:17 | DI.US.S_ITS ---
ULTRASOUND OF RIGHT BREAST AND AXILLA: 07/15/2024 CLINICAL: Intermittent Rt axilla pain. Comparison is made to exams dated: 04/09/2024 ultrasound, 04/09/2024 mammogram, 03/25/2023 mammogram, 03/20/2022 mammogram, 12/19/2020 mammogram, and 04/20/2019 mammogram - [facility]. Color flow and real-time ultrasound of the right breast axilla were performed. Banks scale images of the real-time examination were reviewed. No significant abnormalities were seen sonographically in the right axilla. Specifically, no finding to explain the patient's pain. IMPRESSION: NEGATIVE No enlarged lymph nodes or other abnormalties in the right axilla to explain pain. Clinical follow up is recommended for symptoms as needed. Return to annual mammogram screening schedule is recommended. Future imaging is recommended as follows: 04/09/2025 screening mammogram. Findings and recommendations were conveyed to the patient at time of exam. This exam was interpreted at Station ID: [id number]. Electronically Signed By: Kenia jackson/:07/15/2024 15:06:34 letter sent: Normal Exam ACR BI-RADS Category 1: Negative
== END ==
PROVIDERS: Family Provider Family Medicine; PCP Student in an Organized Health Care Education/Training Program; Referring Provider Student in an Organized Health Care Education/Training Program; Visit Provider Student in an Organized Health Care Education/Training Program
DX: R22.30 Localized swelling, mass and lump, unspecified upper limb (principal)
CPT/HCPCS: 76882

== ENCOUNTER → 2024-08-26 19:11 | Outpatient (CLI) | payer MEDICARE, SELFPAY ==
--- NOTE | 2024-08-26 19:12 | DI.MRI.S_ITS ---
PROCEDURE: MR CHEST WO/W CON INDICATIONS: continued pain, lump itching in the right axilla TECHNIQUE: Noncontrast coronal T1 spin echo and STIR, sagittal T1 spin echo with fat saturation and STIR, axial T1 spin echo and T2 fast spin echo with fat saturation. After the administration of contrast, axial/sagittal/coronal T1 spin echo with fat saturation through the right chest/axilla . COMPARISON: [facility], , BREAST RT LIMITED, 04/09/2024, 12:53. [facility], AXILLARY ONLY RT, 07/15/2024, 14:32. FINDINGS: Image quality: Excellent. Bones: The visualized osseous structures of right hemithorax shows no marrow edema. No fracture or dislocation. No suspicious intraosseous lesion or abnormal intraosseous enhancement. Soft tissues: Fiducial marker is placed over anterior medial aspect of right axilla. Normal fat signal is seen at the site of the marker without enhancing soft tissue mass or drainable fluid collection. The scanned muscles demonstrate normal overall bulk and internal signal. No axillary lymphadenopathy by size criteria. No gross abnormality is seen in included portion of right breast tissue. IMPRESSION: 1. No discrete enhancing soft tissue mass or drainable fluid collection is seen in anterior right axilla at patient's reported area of palpable lump. Normal fat signal is seen in this area and likely represent normal fat tissue versus unencapsulated lipoma. 2. No marrow signal abnormality in visualized right hemithorax. No suspicious bony lesions. No area of abnormal intraosseous enhancement. Dictated by: Derrek Arias M.D. on 08/27/2024 at 11:22 Approved by: Derrek Arias M.D. on 08/27/2024 at 11:24
== END ==
PROVIDERS: Family Provider Family Medicine; PCP Student in an Organized Health Care Education/Training Program; Referring Provider Student in an Organized Health Care Education/Training Program; Visit Provider Student in an Organized Health Care Education/Training Program
DX: R22.31 Localized swelling, mass and lump, right upper limb (principal); M79.621 Pain in right upper arm; L29.9 Pruritus, unspecified
CPT/HCPCS: 71552; A9579

== ENCOUNTER → 2024-08-27 16:23 | Outpatient (CLI) | payer MEDICARE, SELFPAY ==
[2024-08-27 17:08] LABS: Influenza A - CEPHEID Flu A NEGATIVE (NEGATIVE); Influenza B - CEPHEID Flu B NEGATIVE (NEGATIVE); Respiratory Syncytial Virus Negative (Negative)
[2024-08-27 17:14] LABS: COVID-19 CEPHEID 4-PLEX PCR Negative (Negative)
== END ==
PROVIDERS: Family Provider Family Medicine; PCP Student in an Organized Health Care Education/Training Program; Visit Provider Physician Assistant Surgical
DX: R05.1 Acute cough (principal); R09.81 Nasal congestion; R09.89 Other specified symptoms and signs involving the circulatory and respiratory systems
CPT/HCPCS: 0241U

== ENCOUNTER → 2024-11-03 09:02 | Outpatient (CLI) | payer MEDICARE, SELFPAY ==
[2024-11-03 10:08] LABS: Add Manual Diff / Slide Review NO; Basophils Absolute Auto 0 /uL (0-100); Basophils Percent Auto 0.2 % (0-2); Eosinophils Absolute Auto 200 /uL (0-450); Eosinophils Percent Auto 1.9 % (2-4); Hematocrit 37.7 % (36-46); Hemoglobin 12.7 g/dL (12.0-16.0); Lymphocytes Absolute Auto 1500 /uL (1100-4500); Lymphocytes Percent Auto 18.8 % (25-40); Mean Corpuscular HGB Conc 33.7 % (30-36); Mean Corpuscular Hemoglobin 30.5 PG (26-34); Mean Corpuscular Volume 90.8 fL (80-100); Monocytes Absolute Auto 800 /uL (0-900); Monocytes Percent Auto 9.3 % (3-14); Neutrophils Absolute Auto 5700 /uL (1500-7000); Neutrophils Percent Auto 69.8 % (50-75); Platelet Count 317 X10^3/uL (150-400); Red Blood Cell Count 4.15 X10^6/uL (4.0-5.2); Red Cell Distribution Width 12.5 % (11.6-14.8); White Blood Cell Count 8.2 X10^3/uL (4.5-11.0)
[2024-11-03 10:10] LABS: HEMOLYSIS < 15 (0-50)
[2024-11-03 10:17] LABS: Alanine Aminotransferase 26 IU/L (<35); Albumin 4.5 g/dL (3.5-5.0); Albumin Globulin Ratio 1.7 (1.0-2.8); Alkaline Phosphatase 46 U/L (38-126); Aspartate Aminotransferase 26 IU/L (14-36); Bilirubin Total 0.5 mg/dL (0.2-1.3); Blood Urea Nitrogen 21 mg/dL (7-17); Calcium 9.8 mg/dL (8.4-10.2); Carbon Dioxide 29 mmol/L (22-32); Chloride 103 mmol/L (98-107); Cholesterol 181 mg/dL (140-199); Estimated Glomerular Filt Rate 54 mL/min (>60); Globulin 2.6 g/dL (1.7-4.1); Glucose 154 mg/dL (80-110); HDL Cholesterol 57 mg/dL (40-60); LDL Cholesterol Calculated 92 mg/dL (<100); Potassium 4.5 mmol/L (3.4-5.1); Sodium 139 mmol/L (137-145); Total Protein 7.1 g/dL (6.3-8.2); Triglycerides 162 mg/dL (35-150)
[2024-11-03 10:30] LABS: HEMOLYSIS < 15 (0-50); Iron 83 ug/dL (37-170)
[2024-11-03 10:44] LABS: Hemoglobin A1C% w Est Avg Glu 7.2 % (4.0-6.0); Percent Iron Saturation 30 % (15-50); Total Iron Binding Capacity 275 ug/dL (265-497); Transferrin 264 mg/dL (206-381)
[2024-11-03 10:51] LABS: Ferritin 37 ng/mL (11-264)
[2024-11-03 10:52] LABS: Free T4, Direct Thyroxine 1.43 ng/dL (0.78-2.19)
[2024-11-03 10:55] LABS: Free T3, Triiodothyronine Free 3.36 pg/mL (2.77-5.27)
[2024-11-03 11:06] LABS: Thyroid Stimulating Hormone 0.103 uIU/mL (0.47-4.68)
[2024-11-03 15:13] LABS: Microalbumin Urine Random 3.5 mg/dL (0-1.6)
== END ==
PROVIDERS: Family Provider Family Medicine; PCP Student in an Organized Health Care Education/Training Program; Referring Provider Student in an Organized Health Care Education/Training Program; Visit Provider Student in an Organized Health Care Education/Training Program
DX: E11.9 Type 2 diabetes mellitus without complications (principal); R53.83 Other fatigue; I10 Essential (primary) hypertension
CPT/HCPCS: 36415; 80053; 80061; 82043; 82570; 82728; 83036; 83540; 83550; 84439; 84443; 84481; 85025

== ENCOUNTER → 2025-01-11 10:16 | Outpatient (CLI) | payer MEDICARE, SELFPAY ==
--- NOTE | 2025-01-11 10:17 | DI.ECHO.S_ITS ---
[facility] : : [address] : : [place] : : [id number] : : Phone: [phone] Echocardiogram Report + + :Name: YADI GOETZ Study Date: 01/11/2025 Height: 70 in : :[facility] ReadingLocation: Weight: 180 lb : : Gender: Female BSA: 2.0 m2 : :: 1945 Age: 79 yrs BP: 127/59 mmHg: :Reason For Study: HEART MURMUR : :Ordering Physician: RADHA, : :ROXANA Performed By: Dwain Walton : :Referring: ROXANA GARCIA : + + Interpretation Summary 1. The left ventricular contractility is normal. Estimate ejection fraction is greater than 55% with no segmental wall motion abnormalities. No LVH. Grade 1 diastolic dysfunction. 2. The right ventricular contractility is normal. 3. Borderline left atrial enlargement. Right ventricular enlargement is also mildly dilated. 4. Moderate fibrocalcific changes noted in the right coronary cusp of the aortic valve. Mild to moderate aortic insufficiency noted. 5. Mild mitral regurgitation. 6. No obvious intracardiac shunts. 7. No obvious intracardiac masses nor thrombi. 8. No hemodynamically significant pericardial effusion. 9. Low right-sided filling pressures. Conclusion: Normal biventricular systolic function with mild to moderate valvular insufficiencies. Procedure: A two-dimensional transthoracic echocardiogram with color flow and Doppler was performed. The study quality was technically good. Comparison is made with the echocardiogram of 02/07/2016. The patient was in normal sinus rhythm during the exam. Left Ventricle: The left ventricle is normal in size. There is normal left ventricular wall thickness. There is no ventricular septal defect visualized. The ejection fraction is estimated to be 60-65%. There are no focal wall motion abnormalities. Diastolic parameters suggest a relaxation abnormality of the left ventricle, consistent with probable normal filling pressures. Right Ventricle: The right ventricle is mildly dilated. The right ventricular systolic function is normal. Atria: Borderline left atrial enlargement. Right atrial size is normal. The interatrial septum grossly appears intact with no obvious evidence for an atrial septal defect. Mitral Valve: There is mild mitral annular calcification. The mitral valve leaflets are mildly calcified. There is mild mitral regurgitation. Aortic Valve: The aortic valve is trileaflet. The aortic valve is moderately calcified. There is no hemodynamically significant valvular aortic stenosis. There is mild to moderate aortic regurgitation. Tricuspid Valve: The tricuspid valve leaflets are thin and pliable. There is a trace or physiologic amount of tricuspid regurgitation. Pulmonic Valve: The pulmonic valve is not well seen, but is grossly normal. There is no pulmonic valvular regurgitation. Great Vessels: The aortic root is normal size. The dimensions of the ascending aorta are normal. The pulmonary artery is not well visualized, but is probably normal size. The IVC is of normal diameter and collapses greater than 50% with a sniff. This suggests a low right atrial pressure of 3 mm Hg. Pericardium/ Pleura There is no pericardial effusion. There is no pleural effusion. MMode/2D Measurements & Calculations LVIDd: 3.8 cm LVOT diam: 1.9 cm LVIDs: 2.6 cm Ao root diam: 3.1 cm FS: 31.4 % asc Aorta Diam: 3.1 cm EPSS: 0.54 cm IVSd: 1.1 cm LVPWd: 1.0 cm LV rodas. diameter/BSA (cm/m^2): 1.9 LV sys. diameter/BSA (cm/m^2): 1.3 LA A2 area: 21.6 cm2 RA long axis: 4.2 cm LA A4 area: 20.3 cm2 RA area: 7.3 cm2 LA length (vol): 5.2 cm RA vol: 10.8 ml LA vol: 71.3 ml RA : 5.4 ml/m2 LA vol index: 35.7 ml/m2 IVC diam: 1.8 cm RVD1 (basal): 4.1 cm RVD2 (mid): 3.1 cm TAPSE: 2.8 cm Doppler Measurements & Calculations Ao V2 max: 153.6 cm/sec LVOT Max Paulino: 84.7 cm/sec Ao V2 mean: 112.9 cm/sec LV V1 max P.9 mmHg Ao max P.4 mmHg LV V1 VTI: 21.5 cm Ao mean P.6 mmHg JOSE(I,D): 1.6 cm2 Ao V2 VTI: 40.0 cm JOSE(V,D): 1.6 cm2 sev ratio: 0.54 JOSE indexed to BSA (cm^2/m^2): 0.79 AI P1/2t: 412.6 msec AI dec slope: 346.4 cm/sec2 MV E max paulino: 72.0 cm/sec TR max paulino: 12.6 cm/sec MV A max paulino: 91.6 cm/sec TR max P.06 mmHg MV E/A: 0.79 PA V2 max: 99.4 cm/sec Med Peak E' Paulino: 4.8 cm/sec PA V2 mean: 71.4 cm/sec E/E' med: 15.0 PA mean P.3 mmHg Lat Peak E' Paulino: 6.4 cm/sec PA pr(Accel): 10.5 mmHg E/E' lat: 11.2 E/e' average: 13.1 MV dec time: 0.24 sec SV(LVOT): 63.3 ml Reading Physician:BG
== END ==
PROVIDERS: Family Provider Family Medicine; PCP Student in an Organized Health Care Education/Training Program; Referring Provider Student in an Organized Health Care Education/Training Program; Visit Provider Student in an Organized Health Care Education/Training Program
DX: I08.0 Rheumatic disorders of both mitral and aortic valves (principal); R01.1 Cardiac murmur, unspecified
CPT/HCPCS: 93306

== ENCOUNTER → 2025-01-27 08:52 | Outpatient (CLI) | payer MEDICARE, SELFPAY ==
[2025-01-27 10:15] LABS: Hemoglobin A1C% w Est Avg Glu 6.9 % (4.0-6.0)
[2025-01-27 10:21] LABS: Alanine Aminotransferase 24 IU/L (<35); Albumin 4.5 g/dL (3.5-5.0); Albumin Globulin Ratio 1.7 (1.0-2.8); Alkaline Phosphatase 44 U/L (38-126); Aspartate Aminotransferase 23 IU/L (14-36); BUN Creatinine Ratio 19.2 (6-22); Bilirubin Total 0.6 mg/dL (0.2-1.3); Blood Urea Nitrogen 19 mg/dL (7-17); Calcium 9.8 mg/dL (8.4-10.2); Carbon Dioxide 27 mmol/L (22-32); Chloride 104 mmol/L (98-107); Estimated Glomerular Filt Rate 58 mL/min (>60); Globulin 2.6 g/dL (1.7-4.1); Glucose 140 mg/dL (80-110); HEMOLYSIS < 15 (0-50); Potassium 4.7 mmol/L (3.4-5.1); Sodium 141 mmol/L (137-145); Total Protein 7.1 g/dL (6.3-8.2)
[2025-01-27 10:49] LABS: Thyroid Stimulating Hormone 0.152 uIU/mL (0.47-4.68)
== END ==
PROVIDERS: Family Provider Family Medicine; PCP Student in an Organized Health Care Education/Training Program; Referring Provider Student in an Organized Health Care Education/Training Program; Visit Provider Student in an Organized Health Care Education/Training Program
DX: E11.65 Type 2 diabetes mellitus with hyperglycemia (principal); E03.9 Hypothyroidism, unspecified; E11.40 Type 2 diabetes mellitus with diabetic neuropathy, unspecified; E11.3293 Type 2 diabetes mellitus with mild nonproliferative diabetic retinopathy without macular edema, bilateral
CPT/HCPCS: 36415; 80053; 83036; 84443

== ENCOUNTER → 2025-03-18 11:47 | Outpatient (CLI) | payer MEDICARE, SELFPAY ==
[2025-03-18 13:11] LABS: Alanine Aminotransferase 23 IU/L (<35); Albumin 4.5 g/dL (3.5-5.0); Albumin Globulin Ratio 1.9 (1.0-2.8); Alkaline Phosphatase 47 U/L (38-126); Aspartate Aminotransferase 24 IU/L (14-36); BUN Creatinine Ratio 21.8 (6-22); Bilirubin Total 0.5 mg/dL (0.2-1.3); Blood Urea Nitrogen 19 mg/dL (7-17); Calcium 9.7 mg/dL (8.4-10.2); Carbon Dioxide 26 mmol/L (22-32); Chloride 102 mmol/L (98-107); Estimated Glomerular Filt Rate > 60 mL/min (>60); Globulin 2.4 g/dL (1.7-4.1); Glucose 106 mg/dL (70-99); HEMOLYSIS < 15 (0-50); Potassium 4.5 mmol/L (3.4-5.1); Sodium 138 mmol/L (137-145); Total Protein 6.9 g/dL (6.3-8.2)
[2025-03-18 13:25] LABS: T4 Total Thyroxine 9.57 ug/dL (5.5-11.0)
[2025-03-18 13:38] LABS: Thyroid Stimulating Hormone 0.501 uIU/mL (0.47-4.68)
[2025-03-18 17:21] LABS: Hemoglobin A1C% w Est Avg Glu 6.9 % (4.0-6.0)
== END ==
PROVIDERS: Family Provider Family Medicine; PCP Student in an Organized Health Care Education/Training Program; Referring Provider Student in an Organized Health Care Education/Training Program; Visit Provider Student in an Organized Health Care Education/Training Program
DX: E11.40 Type 2 diabetes mellitus with diabetic neuropathy, unspecified (principal); E03.9 Hypothyroidism, unspecified
CPT/HCPCS: 36415; 80053; 83036; 84436; 84443; 84481

== ENCOUNTER → 2025-04-28 08:54 | Outpatient (CLI) | payer MEDICARE, SELFPAY ==
[2025-04-28 10:00] LABS: Hemoglobin A1C% w Est Avg Glu 6.6 % (4.0-6.0)
[2025-04-28 10:07] LABS: Alanine Aminotransferase 22 IU/L (<35); Albumin 4.5 g/dL (3.5-5.0); Albumin Globulin Ratio 1.8 (1.0-2.8); Alkaline Phosphatase 48 U/L (38-126); Blood Urea Nitrogen 22 mg/dL (7-17); Calcium 9.7 mg/dL (8.4-10.2); Carbon Dioxide 26 mmol/L (22-32); Chloride 104 mmol/L (98-107); Estimated Glomerular Filt Rate > 60 mL/min (>60); Globulin 2.5 g/dL (1.7-4.1); Glucose 114 mg/dL (70-99); HEMOLYSIS < 15 (0-50); Potassium 4.7 mmol/L (3.4-5.1); Sodium 140 mmol/L (137-145); Total Protein 7.0 g/dL (6.3-8.2)
[2025-04-28 10:23] LABS: Free T3, Triiodothyronine Free 3.61 pg/mL (2.77-5.27)
[2025-04-28 10:24] LABS: Free T4, Direct Thyroxine 1.57 ng/dL (0.78-2.19)
[2025-04-28 10:37] LABS: Thyroid Stimulating Hormone 2.61 uIU/mL (0.47-4.68)
[2025-04-28 16:43] LABS: Microalbumi Creatinin Ratio Ur 46.0 ug/mg CR (<30)
== END ==
PROVIDERS: Family Provider Family Medicine; PCP Student in an Organized Health Care Education/Training Program; Referring Provider Student in an Organized Health Care Education/Training Program; Visit Provider Student in an Organized Health Care Education/Training Program
DX: E11.65 Type 2 diabetes mellitus with hyperglycemia (principal)
CPT/HCPCS: 36415; 80053; 82043; 82570; 83036; 84439; 84443; 84481

== ENCOUNTER → 2025-07-28 09:02 | Outpatient (CLI) | payer MEDICARE, SELFPAY ==
[2025-07-28 10:10] LABS: Hemoglobin A1C% w Est Avg Glu 6.5 % (4.0-6.0)
[2025-07-28 10:13] LABS: Alanine Aminotransferase 19 IU/L (<35); Albumin 4.4 g/dL (3.5-5.0); Albumin Globulin Ratio 1.8 (1.0-2.8); Alkaline Phosphatase 48 U/L (38-126); Blood Urea Nitrogen 19 mg/dL (7-17); Calcium 9.5 mg/dL (8.4-10.2); Carbon Dioxide 26 mmol/L (22-32); Chloride 104 mmol/L (98-107); Estimated Glomerular Filt Rate > 60 mL/min (>60); Globulin 2.5 g/dL (1.7-4.1); Glucose 126 mg/dL (70-99); HEMOLYSIS < 15 (0-50); Potassium 4.7 mmol/L (3.4-5.1); Sodium 140 mmol/L (137-145); Total Protein 6.9 g/dL (6.3-8.2)
== END ==
PROVIDERS: Family Provider Family Medicine; PCP Student in an Organized Health Care Education/Training Program; Referring Provider Student in an Organized Health Care Education/Training Program; Visit Provider Student in an Organized Health Care Education/Training Program
DX: E11.40 Type 2 diabetes mellitus with diabetic neuropathy, unspecified (principal)
CPT/HCPCS: 36415; 80053; 83036